=== PATIENT | female | born 1945 | race Caucasian/White ===

== ENCOUNTER 2016-10-27 05:49 | Day surgery (SDC) | payer OTHER ==
[2016-10-26 10:29] VITALS: BP 154/69
[~2016-10-27] VITALS: Ht 154.9 cm; Wt 67.5 kg
[~2016-10-27 05:49] MED LIST: AMLO10TA2 PO; CEFD300C2 PO; LOSA50TA6 PO; METH5TAB2 PO; NICO1PAT5 TD; POLY17PO5 PO
[2016-10-27] MEDS ORDERED: LACTATED RINGERS 1,000 ML IV SCH (07:07)
[2016-10-27] MEDS ORDERED: SODIUM CHLORIDE 0.9% 1,000 ML IV SCH (07:07)
[2016-10-27 07:10] VITALS: BP 154/69
[2016-10-27] MEDS ORDERED: LIDOCAINE 1%, 2ML SQ PRN (07:30)
[2016-10-27] MEDS ORDERED: FENTANYL PF 250 MCG/5ML ONE (07:33)
[2016-10-27] MEDS ORDERED: MIDAZOLAM 1 MG/ML, 2ML ONE (07:34)
[2016-10-27] MEDS ORDERED: ALBUTEROL SULFATE 2.5 MG/3 ML NPPB PRN (09:00)
[2016-10-27] MEDS ORDERED: HYDROmorphone 1 MG/ML, 1ML IV PRN (09:00)
[2016-10-27] MEDS ORDERED: PROMETHAZINE 25 MG/ML, 1ML IV PRN (09:00)
[2016-10-27] MEDS ORDERED: OXYcodone 5 MG/5 ML ORAL.SOL UDC PO PRN (09:00)
[2016-10-27] MEDS ORDERED: hydrALAzine 20 MG/ML, 1ML IV PRN (09:00)
[2016-10-27] MEDS ORDERED: METOPROLOL 1 MG/ML, 5ML IV PRN (09:00)
[2016-10-27] MEDS ORDERED: FENTANYL PF 100 MCG/2ML IV PRN (09:00)
[2016-10-27] MEDS ORDERED: MEPERIDINE/PF 25MG/0.5ML IVPush PRN (09:00)
[2016-10-27] MEDS ORDERED: ACETAMINOPHEN 325 MG TABLET PO PRN (09:00)
[2016-10-27] MEDS ORDERED: SUCCINYLCHOLINE 20 MG/ML, 10ML ONE (11:13)
[2016-10-27] MEDS ORDERED: ONDANSETRON 2MG/ML, 2ML ONE (11:13)
[2016-10-27] MEDS ORDERED: PROPOFOL 10 MG/ML, 20ML ONE (11:13)
[2016-10-27] MEDS ORDERED: METOPROLOL 1 MG/ML, 5ML ONE (11:13)
== END 2016-10-27 10:50 | disposition home or self-care (01) ==
LOC: OUT 05:49
PROVIDERS: ATTEND Internal Medicine Geriatric Medicine
DX: R93.2 Abnormal findings on diagnostic imaging of liver and biliary tract (principal); I10 Essential (primary) hypertension; F17.210 Nicotine dependence, cigarettes, uncomplicated; Z85.51 Personal history of malignant neoplasm of bladder; Z85.42 Personal history of malignant neoplasm of other parts of uterus; Z90.49 Acquired absence of other specified parts of digestive tract; Z90.710 Acquired absence of both cervix and uterus; Z82.3 Family history of stroke; Z82.49 Family history of ischemic heart disease and other diseases of the circulatory system
CPT/HCPCS: 43259; 43260; 93005; C1769; J0330; J2250; J2405; J2704; J3010; J7030

== ENCOUNTER 2020-11-25 09:55 | Emergency (ER) | payer MEDICARE, OTHER ==
[~2020-11-25] VITALS: Ht 152.4 cm; Wt 72.0 kg
[~2020-11-25 09:55] MED LIST changes: +AMLO-211 PO; -AMLO10TA2 PO; -CEFD300C2 PO; +CEFD300C37 PO; +LOSA50TA14 PO; -LOSA50TA6 PO; +NICO-587 TD; -NICO1PAT5 TD
[2020-11-25 10:06] VITALS: BP 145/55
--- NOTE | 2020-11-25 10:53 | NUR ---
IMAGING COMPLETED. AWAITING FINAL REPORTS.
--- NOTE | 2020-11-25 11:18 | NUR ---
PT PLACED IN KNEE IMMOBILIZER, AMBULATES WELL WITH WALKER FROM HOSPITAL. NAD NOTED. GRANDSON AT BEDSIDE. PT READY FOR DC.
== END 2020-11-25 11:45 | disposition home or self-care (01) ==
LOC: ED 11:00
DX: S83.92XA Sprain of unspecified site of left knee, initial encounter (principal); S93.402A Sprain of unspecified ligament of left ankle, initial encounter; S93.602A Unspecified sprain of left foot, initial encounter; I10 Essential (primary) hypertension; W18.30XA Fall on same level, unspecified, initial encounter; Y93.89 Activity, other specified; Y92.009 Unspecified place in unspecified non-institutional (private) residence as the place of occurrence of the external cause; Y99.8 Other external cause status
CPT/HCPCS: 29505; 99284